=== PATIENT | male | born 1995 | race Caucasian/White ===

== ENCOUNTER 2017-10-04 07:38 | Emergency (ER) | payer OTHER ==
[2017-10-04] MEDS: ALBUTEROL SULFATE 2.5 MG/0.5 ML INH NEB SOLN NEB (08:20)
[2017-10-04] MEDS: NS 1,000 ML IV (08:45)
[2017-10-04 08:46] LABS: BASO % 0.4 % (0.0-1.0); EOS # 0.1 10^3/uL (0.0-0.50); EOS % 1.4 % (0.0-3.0); HEMATOCRIT 41.3 % (42.0-52.0); HEMOGLOBIN 14.3 g/dl (13.5-17.5); IMMATURE GRANULOCYTE % 0.4 % (0-3.0); LYMPH # 1.3 10^3/uL (1.5-6.5); LYMPH % 18.1 % (24.0-44.0); MEAN CORPUSCULAR HEMOGLOBIN 29.8 pg (27.0-33.0); MEAN CORPUSCULAR HGB CONC 34.6 g/dl (32.0-36.5); MONO # 0.5 10^3/uL (0.0-0.8); MONO % 6.6 % (0.0-5.0); NEUTROPHILS # 5.1 10^3/uL (1.8-7.7); NEUTROPHILS % 73.1 % (36.0-66.0); PLATELET COUNT, AUTOMATED 253 10^3/uL (150-450); RED CELL DISTRIBUTION WIDTH 11.9 % (11.5-14.5)
[2017-10-04 09:14] LABS: LACTIC ACID SEPSIS PROTOCOL 1.2 MMOL/L (0.4-2.0)
[2017-10-04] MEDS ORDERED: ISOVUE-370 76% 100ML VIAL (Q9967) As Ordered (09:18)
[2017-10-04 09:21] LABS: ALBUMIN/GLOBULIN RATIO 1.18 (1.00-1.93); ALKALINE PHOSPHATASE 81 U/L (45-117); ALT/SGPT 61 U/L (12-78); ANION GAP 7 MEQ/L (8-16); AST/SGOT 18 U/L (7-37); BILIRUBIN,DIRECT 0.1 MG/DL (0.0-0.2); BILIRUBIN,TOTAL 0.5 MG/DL (0.2-1.0); BLOOD UREA NITROGEN 12 MG/DL (7-18); CALCIUM LEVEL 9.2 MG/DL (8.5-10.1); CARBON DIOXIDE LEVEL 27 MEQ/L (21-32); CHLORIDE LEVEL 106 MEQ/L (98-107); CREATININE FOR GFR 0.93 MG/DL (0.70-1.30); GLOMERULAR FILTRATION RATE > 60.0 (>60); GLUCOSE, FASTING 90 MG/DL (70-100); POTASSIUM SERUM 3.8 MEQ/L (3.5-5.1); SODIUM LEVEL 140 MEQ/L (136-145); TOTAL PROTEIN 7.4 GM/DL (6.4-8.2)
[2017-10-04 09:35] LABS: INFLUENZA A AMPLIFICATION NEGATIVE (NEGATIVE); INFLUENZA B AMPLIFICATION NEGATIVE (NEGATIVE)
== END 2017-10-04 10:46 | disposition home or self-care (01) ==
LOC: M ED 07:38
DX: R05 Cough (principal); Z79.899 Other long term (current) drug therapy; Z88.0 Allergy status to penicillin
CPT/HCPCS: Q9967

== ENCOUNTER → 2017-10-16 | Outpatient (CLI) | payer OTHER ==
[~2017-10-16] MED LIST: PROHANCE 279.3MG/ML 15ML VIAL (A9576) As Ordered
== END ==
LOC: M RAD 17:51
DX: R41.844 Frontal lobe and executive function deficit (principal)

== ENCOUNTER 2018-01-18 11:52 | Day surgery (SDC) | payer OTHER ==
[2018-01-18] MEDS: NS 1,000 ML IV (06:00)
[2018-01-18] MEDS ORDERED: LIDOCAINE 2% INJ 100 MG/5 ML SDV (FOR ANES.) As Ordered (13:35)
[2018-01-18] MEDS ORDERED: PROPOFOL 200 MG/20 ML VIAL As Ordered (13:35)
== END 2018-01-18 14:07 | disposition home or self-care (01) ==
LOC: M OPP 11:52
DX: R12 Heartburn (principal); K44.9 Diaphragmatic hernia without obstruction or gangrene; K22.8 Other specified diseases of esophagus; K21.9 Gastro-esophageal reflux disease without esophagitis; G43.909 Migraine, unspecified, not intractable, without status migrainosus; F17.220 Nicotine dependence, chewing tobacco, uncomplicated; Z88.0 Allergy status to penicillin; Z79.899 Other long term (current) drug therapy
CPT/HCPCS: 43239

== ENCOUNTER → 2018-02-13 | Outpatient (REF) | payer OTHER ==
[2018-02-13 18:44] LABS: BASO % 0.7 % (0.0-1.0); EOS # 0.1 10^3/uL (0.0-0.50); EOS % 1.7 % (0.0-3.0); HEMOGLOBIN 16.4 g/dl (13.5-17.5); LYMPH # 1.2 10^3/uL (1.5-6.5); LYMPH % 30.2 % (24.0-44.0); MEAN CORPUSCULAR HEMOGLOBIN 29.7 pg (27.0-33.0); MEAN CORPUSCULAR HGB CONC 33.5 g/dl (32.0-36.5); MEAN CORPUSCULAR VOLUME 88.8 fl (80.0-96.0); MONO # 0.4 10^3/uL (0.0-0.8); NEUTROPHILS # 2.4 10^3/uL (1.8-7.7); NEUTROPHILS % 58.4 % (36.0-66.0); PLATELET COUNT, AUTOMATED 202 10^3/uL (150-450); RED BLOOD COUNT 5.52 10^6/uL (4.30-6.10); WHITE BLOOD COUNT 4.1 10^3/uL (4.0-10.0)
[2018-02-13 18:54] LABS: ALBUMIN 4.7 GM/DL (3.2-5.2); ALBUMIN/GLOBULIN RATIO 1.57 (1.00-1.93); ALKALINE PHOSPHATASE 69 U/L (45-117); ALT/SGPT 27 U/L (12-78); ANION GAP 10 MEQ/L (8-16); AST/SGOT 6 U/L (7-37); BILIRUBIN,TOTAL 0.8 MG/DL (0.2-1.0); BLOOD UREA NITROGEN 15 MG/DL (7-18); CALCIUM LEVEL 9.5 MG/DL (8.5-10.1); CARBON DIOXIDE LEVEL 29 MEQ/L (21-32); CHLORIDE LEVEL 102 MEQ/L (98-107); CREATININE FOR GFR 1.12 MG/DL (0.70-1.30); GLOMERULAR FILTRATION RATE > 60.0 (>60); GLUCOSE, FASTING 92 MG/DL (70-100); POTASSIUM SERUM 4.4 MEQ/L (3.5-5.1); SODIUM LEVEL 141 MEQ/L (136-145); TOTAL PROTEIN 7.7 GM/DL (6.4-8.2); VALPROIC ACID (DEPAKOTE) 93.5 UG/ML (50.0-100.0)
[2018-02-13 19:18] LABS: ADD MORPHOLOGY? YES; SUSPECT SAMPLE POS FLAG
[2018-02-13 19:19] LABS: PLATELET ESTIMATE NORMAL (NORMAL)
== END ==
LOC: M LABNEURO 13:11
DX: R51 Headache (principal)

== ENCOUNTER 2018-02-14 14:05 | Emergency (ER) | payer OTHER ==
[2018-02-14] MEDS: NS 1,000 ML IV (17:15)
[2018-02-14] MEDS: METOCLOPRAMIDE INJ 10MG/2ML VIAL (J2765) IV (17:22)
[2018-02-14] MEDS: diphenhydrAMINE INJ 50MG/ML VIAL (J1200) IV (17:23)
[2018-02-14] MEDS: KETOROLAC 30 MG/ML VIAL (J1885) IV (17:24)
[2018-02-14] MEDS: methylPREDNISolone INJ 125 MG/2 ML VIAL (J2930) IV (18:13)
== END 2018-02-14 18:41 | disposition home or self-care (01) ==
LOC: M ED 14:05
DX: G43.909 Migraine, unspecified, not intractable, without status migrainosus (principal); K21.9 Gastro-esophageal reflux disease without esophagitis; F90.9 Attention-deficit hyperactivity disorder, unspecified type; Z88.0 Allergy status to penicillin; Z79.899 Other long term (current) drug therapy
CPT/HCPCS: J1200

== ENCOUNTER 2018-02-17 17:16 | Emergency (ER) | payer OTHER ==
[2018-02-17 18:42] LABS: BASO % 0.3 % (0.0-1.0); EOS % 0.6 % (0.0-3.0); HEMATOCRIT 44.2 % (42.0-52.0); HEMOGLOBIN 14.6 g/dl (13.5-17.5); IMMATURE GRANULOCYTE % 0.3 % (0-3.0); LYMPH # 1.3 10^3/uL (1.5-6.5); LYMPH % 18.8 % (24.0-44.0); MEAN CORPUSCULAR HEMOGLOBIN 29.4 pg (27.0-33.0); MEAN CORPUSCULAR VOLUME 88.9 fl (80.0-96.0); MONO # 0.4 10^3/uL (0.0-0.8); MONO % 5.4 % (0.0-5.0); NEUTROPHILS # 5.1 10^3/uL (1.8-7.7); NEUTROPHILS % 74.6 % (36.0-66.0); PLATELET COUNT, AUTOMATED 181 10^3/uL (150-450); RED BLOOD COUNT 4.97 10^6/uL (4.30-6.10); RED CELL DISTRIBUTION WIDTH 11.8 % (11.5-14.5); WHITE BLOOD COUNT 6.8 10^3/uL (4.0-10.0)
[2018-02-17 19:00] LABS: ANION GAP 7 MEQ/L (8-16); BLOOD UREA NITROGEN 15 MG/DL (7-18); CALCIUM LEVEL 8.7 MG/DL (8.5-10.1); CARBON DIOXIDE LEVEL 31 MEQ/L (21-32); CHLORIDE LEVEL 107 MEQ/L (98-107); CREATININE FOR GFR 0.99 MG/DL (0.70-1.30); GLOMERULAR FILTRATION RATE > 60.0 (>60); GLUCOSE, FASTING 98 MG/DL (70-100); POTASSIUM SERUM 3.9 MEQ/L (3.5-5.1); SODIUM LEVEL 145 MEQ/L (136-145)
[2018-02-17 19:16] LABS: ERYTHROCYTE SEDIMENTATION RATE 1 mm/hr (0-15)
[2018-02-17] MEDS: NS 500 ML IV (19:23)
[2018-02-17] MEDS: methylPREDNISolone INJ 125 MG/2 ML VIAL (J2930) IV (19:23)
[2018-02-17] MEDS: MAG SULF 1GM/100ML (MAG RUN) 1 GM in APPROPRIATE DILUENT 1 EA IV (19:23)
[2018-02-17 19:25] LABS: VALPROIC ACID (DEPAKOTE) 45.3 UG/ML (50.0-100.0)
[2018-02-17] MEDS: HYDROMORPHONE HCL 0.5 MG/ 0.5 ML SYRINGE (J1170 PER 1) IV (20:16)
[2018-02-17] MEDS: KETOROLAC 30 MG/ML VIAL (J1885) IV (21:07)
[2018-02-17] MEDS: diphenhydrAMINE INJ 50MG/ML VIAL (J1200) IV (21:07)
[2018-02-17] MEDS: METOCLOPRAMIDE INJ 10MG/2ML VIAL (J2765) IV (21:07)
== END 2018-02-17 21:55 | disposition home or self-care (01) ==
LOC: M ED 17:16
DX: G43.011 Migraine without aura, intractable, with status migrainosus (principal); Z88.8 Allergy status to other drugs, medicaments and biological substances; Z88.0 Allergy status to penicillin; Z79.899 Other long term (current) drug therapy
CPT/HCPCS: J1200

== ENCOUNTER 2018-12-24 15:03 | Emergency (ER) | payer OTHER ==
[~2018-12-24] VITALS: Ht 170.2 cm; Wt 75.0 kg
[~2018-12-24 15:03] MED LIST changes: +ADDE15CA3 PO; +ADDE20CA3 PO; +ALBU17IN2 INH; +BUTA1CAP3 PO; +DEPA500T2 PO; +DULO1CAP6; +MEDR4PAK PO; +MODA100T13; +OMEP20CA4 PO; -PROHANCE 279.3MG/ML 15ML VIAL (A9576) As Ordered; +PROTPAK PO; +TYLE-43 PO; +ZONI25CA2 PO
[2018-12-24 15:48] LABS: BASO % 0.5 % (0.0-1.0); EOS % 0.5 % (0.0-3.0); HEMATOCRIT 48.6 % (42.0-52.0); LYMPH % 17.9 % (24.0-44.0); MEAN CORPUSCULAR HEMOGLOBIN 30.3 pg (27.0-33.0); MEAN CORPUSCULAR HGB CONC 32.9 g/dl (32.0-36.5); MONO # 0.3 10^3/uL (0.0-0.8); NEUTROPHILS # 4.4 10^3/uL (1.8-7.7); NEUTROPHILS % 75.9 % (36.0-66.0); PLATELET COUNT, AUTOMATED 212 10^3/uL (150-450); RED BLOOD COUNT 5.28 10^6/uL (4.30-6.10); WHITE BLOOD COUNT 5.8 10^3/uL (4.0-10.0)
[2018-12-24 16:12] LABS: BLOOD UREA NITROGEN 11 MG/DL (7-18); CALCIUM LEVEL 9.4 MG/DL (8.5-10.1); CARBON DIOXIDE LEVEL 30 MEQ/L (21-32); CHLORIDE LEVEL 107 MEQ/L (98-107); CREATININE FOR GFR 1.08 MG/DL (0.70-1.30); GLOMERULAR FILTRATION RATE > 60.0 (>60); GLUCOSE, FASTING 104 MG/DL (70-100); POTASSIUM SERUM 4.6 MEQ/L (3.5-5.1); SODIUM LEVEL 143 MEQ/L (136-145)
[2018-12-24] MEDS ORDERED: NS 1,000 ML IV ONE (17:00)
[2018-12-24 17:05] LABS: ALBUMIN 4.4 GM/DL (3.2-5.2); ALT/SGPT 35 U/L (12-78); BILIRUBIN,DIRECT 0.1 MG/DL (0.0-0.2); BILIRUBIN,TOTAL 0.6 MG/DL (0.2-1.0); TOTAL PROTEIN 7.2 GM/DL (6.4-8.2)
[2018-12-24 17:56] LABS: AMPHETAMINES LEVEL URINE NEGATIVE (NEGATIVE); BARBITURATES URINE NEGATIVE (NEGATIVE); BENZODIAZEPINES URINE NEGATIVE (NEGATIVE); CANNABINOIDS URINE NEGATIVE (NEGATIVE); COCAINE METABOLITE URINE NEGATIVE (NEGATIVE); METHADONE URINE NEGATIVE (NEGATIVE); OPIATES URINE NEGATIVE (NEGATIVE); PHENCYCLIDINE URINE NEGATIVE (NEGATIVE)
--- NOTE | 2018-12-24 17:58 | REPVR ---
EXAM: CT Head Without Contrast EXAM DATE/TIME: 12/24/2018 5:07 PM CLINICAL HISTORY: 23 years old, male; Dizziness; Additional info: Dizzy/paresthesia TECHNIQUE: Imaging protocol: Computed tomography images of the head without contrast. Radiation optimization: All CT scans at this facility use at least one of these dose optimization techniques: automated exposure control; mA and/or kV adjustment per patient size (includes targeted exams where dose is matched to clinical indication); or iterative reconstruction. COMPARISON: MRI-Brain W/O FOLL BY WITH 10/16/2017 6:03 PM FINDINGS: Brain: Punctate calcifications in the anteromedial right frontal lobe, favored to be dystrophic in nature. No acute intracranial hemorrhage. No midline shift. Ventricles: Normal. No ventriculomegaly. Bones/joints: No acute fracture. Sinuses: Unremarkable as visualized. No acute sinusitis. Mastoid air cells: Visualized mastoid air cells are well aerated. No mastoid effusion. Soft tissues: Unremarkable. IMPRESSION: No acute intracranial abnormality is identified. Electronically signed by: Izabela Corrales On 12/24/2018 17:58:10 PM
[2018-12-24 18:15] VITALS: BP 104/53
[2018-12-24] MEDS ORDERED: ACETAMINOPHEN 325 MG TAB PO ONE (18:30)
[2018-12-24 18:40] LABS: VALPROIC ACID (DEPAKOTE) < 3.0 UG/ML (50.0-100.0)
--- NOTE | 2018-12-25 19:30 | ECGEPIP ---
[facility] - ED Test Date: 2018-12-24 Pat Name: KRIS SHETTY Department: Room: - Gender: Male Bur[place] Hand: ct : 1995 Requested By: Carlyn Grey Order Number: [id number] Reading MD: Carlyn Grey Measurements Intervals [place] Rate: 74 P: 16 FL: 135 QRS: 53 QRSD: 100 T: 37 QT: 358 QTc: 399 Interpretive Statements SINUS RHYTHM WITH SINUS ARRHYTHMIA INTERPRETATION BASED ON A DEFAULT AGE OF 40 YEARS DECREASED RATE 12/03/18 Electronically Signed on 12-25-2018 19:30:46 EDT by Carlyn Grey
== END 2018-12-24 18:37 | disposition home or self-care (01) ==
LOC: M ED 15:03
DX: R42 Dizziness and giddiness (principal); R20.0 Anesthesia of skin; F17.290 Nicotine dependence, other tobacco product, uncomplicated; Z88.8 Allergy status to other drugs, medicaments and biological substances; Z79.899 Other long term (current) drug therapy

== ENCOUNTER 2019-04-15 11:29 | Emergency (ER) | payer OTHER ==
[~2019-04-15] VITALS: Ht 170.2 cm; Wt 77.3 kg
[2019-04-15 11:29] VITALS: BP 139/78
[~2019-04-15 11:29] MED LIST changes: -ALBU17IN2 INH; +PROV108A INH
[2019-04-15] MEDS ORDERED: DULO1CAP5 (11:38)
[2019-04-15] MEDS ORDERED: PRAZ1CAP (11:38)
[2019-04-15] MEDS ORDERED: PANT40TA3 (11:38)
[2019-04-15] MEDS ORDERED: ARIP1TAB4 (11:38)
== END 2019-04-15 13:19 | disposition left against medical advice (07) ==
LOC: M ED 11:29
DX: Z53.21 Procedure and treatment not carried out due to patient leaving prior to being seen by health care provider (principal)